=== PATIENT | female | born 1985 | race Caucasian/White ===

== ENCOUNTER → 2025-04-28 15:41 | Outpatient (REF) | payer OTHER, SELFPAY | LOC: RAD 15:41 | PROVIDERS: ATTENDING PHYSICIAN Obstetrics & Gynecology | DX: O02.1 Missed abortion (principal) | CPT/HCPCS: 76801; 76817 ==

== ENCOUNTER → 2025-06-13 15:36 | Outpatient (REF) | payer OTHER, SELFPAY | LOC: PNTC 15:36 | PROVIDERS: ATTENDING PHYSICIAN Obstetrics & Gynecology | DX: Z36.0 Encounter for antenatal screening for chromosomal anomalies (principal); Z36.82 Encounter for antenatal screening for nuchal translucency | CPT/HCPCS: 76801; 76813 ==

== ENCOUNTER → 2025-07-11 16:11 | Outpatient (REF) | payer OTHER, SELFPAY | LOC: PNTC 16:11 | PROVIDERS: ATTENDING PHYSICIAN Obstetrics & Gynecology | DX: O99.210 Obesity complicating pregnancy, unspecified trimester (principal); O09.529 Supervision of elderly multigravida, unspecified trimester; O35.5XX0 Maternal care for (suspected) damage to fetus by drugs, not applicable or unspecified; O10.019 Pre-existing essential hypertension complicating pregnancy, unspecified trimester | CPT/HCPCS: 76805 ==

== ENCOUNTER → 2025-08-08 15:56 | Outpatient (REF) | payer OTHER, SELFPAY | LOC: PNTC 15:56 | PROVIDERS: ATTENDING PHYSICIAN Obstetrics & Gynecology | DX: O09.529 Supervision of elderly multigravida, unspecified trimester (principal); O99.210 Obesity complicating pregnancy, unspecified trimester; O35.5XX0 Maternal care for (suspected) damage to fetus by drugs, not applicable or unspecified; O10.019 Pre-existing essential hypertension complicating pregnancy, unspecified trimester | CPT/HCPCS: 76811; 76817 ==

== ENCOUNTER → 2025-08-15 15:32 | Outpatient (REF) | payer OTHER, SELFPAY ==
--- NOTE | 2025-08-11 10:13 | PN.DIAED06 ---
Meal Plan - Gestational
- Breakfast
Gestational Diabetes Meal Plan Name: 1800 calories
Breakfast - Total Carbohydrate (grams): 30 (Carbs = starch, fruit, dairy, juice)
Breakfast - Starch Carbohydrate: 1 (1 carb=15g)
Breakfast - Fruit Carbohydrate: 0 (no fruit or juice before noon)
Breakfast - Milk Carbohydrate: 1
Breakfast - Nonstarchy Vegetables: Yes
Breakfast - Meat/Protein: 1 (protein=1gram or 7oz)
Breakfast - Fat: 2 (fat=5oz)
- Morning Snack
Morning Snack - Total Carbohydrate (grams): 30
Morning Snack - Starch Carbohydrate: 1
Morning Snack - Fruit Carbohydrate: 0 (no fruit or juice before noon)
Morning Snack - Milk Carbohydrate: 1
Morning Snack - Nonstarchy Vegetables: Yes
Morning Snack - Meat/Protein: 0.5
Morning Snack - Fat: 0
- Lunch
Lunch - Total Carbohydrate (grams): 45
Lunch - Starch Carbohydrate: 2
Lunch - Fruit Carbohydrate: 1
Lunch - Milk Carbohydrate: 0
Lunch - Nonstarchy Vegetables: Yes
Lunch - Meat/Protein: 2
Lunch - Fat: 1
- Afternoon Snack
Afternoon Snack - Total Carbohydrate (grams): 30
Afternoon Snack - Starch Carbohydrate: 1
Afternoon Snack - Fruit Carbohydrate: 1
Afternoon Snack - Milk Carbohydrate: 0
Afternoon Snack - Nonstarchy Vegetables: Yes
Afternoon Snack - Meat/Protein: 1
Afternoon Snack - Fat: 0
- Dinner
Dinner - Total Carbohydrate (grams): 45
Dinner - Starch Carbohydrate: 2
Dinner - Fruit Carbohydrate: 0
Dinner - Milk Carbohydrate: 1
Dinner - Nonstarchy Vegetables: Yes
Dinner - Meat/Protein: 2
Dinner - Fat: 2
- Evening Snack
Evening Snack - Total Carbohydrate (grams): 30
Evening Snack - Starch Carbohydrate: 1
Evening Snack - Fruit Carbohydrate: 0
Evening Snack - Milk Carbohydrate: 1
Evening Snack - Nonstarchy Vegetables: Yes
Evening Snack - Meat/Protein: 1
Evening Snack - Fat: 1
--- NOTE | 2025-08-15 15:38 | PN.DE ---
Diabetes Education
- -
08/15/2025 GESTATIONAL DIABETES CONSULTATION
Met with patient today for medical nutrition therapy. G1, P1, currently at 20 weeks of gestation, with an FREDY of 12/19/2025.
Prior to , she was informed she has prediabetes based on her fasting BS but A1c was 5.4%.
She cannot exercise due to placenta previa. Has hypertension, takes Labetolol 100 mg QD, Aspirin 81 mg QD. There is the possibility of a C section at 37 weeks depending on baby's size. Currently at 60th percentile.
Explained glucose metabolism in body and what occurs during to cause increase blood sugar. Discussed importance of keeping BS well controlled to avoid complications to the baby during and after (macrosomia, hypoglycemia). Discussed
macronutrients, provided with 1800 olive GDM meal plan explaining proper portions and food combinations of carbohydrates, proteins, and fat. She drinks [employer] decaf with caramel flavoring and a large banana muffine in the morning, then eats
at 9:30am and 11:30am. Discussed the importance of lower fat sweets, proteins, and dairy. Discussed eating breakfast at home (as per her meal plan), spreading out snacks and lunch. She also eats a lot of white pasta, discussed 1 portion is 1/3
cup cooked pasta; switching to whole grain/higher fiber carbohydrates will help decrease blood sugar spikes.
Discussed physical activity and importance in lowering glucose values. She has physical restrictions and cannot exercise.
Provided her with Contour Next glucometer, she has the ordered test strips and lancets. Reviewed proper testing technique, testing sites and testing pattern. She is aware to test FBS and 2 hr pp each meal. Expected results for FBS <95 mg/dl and 2 hr
pp <120 mg/dl. Noted for blood sugar of 109mg/dl 2 hr after lunch this afternoon.
Log sheet provided for her to record results, she will send a 4-day meal log with all her FBG and 2hr Post prandial glucose numbers to this office for review. In addition, she will send all her glucose readings [facility] every Thursday.
She was encouraged to reach out should she require insulin
== END ==
LOC: DES 15:32
PROVIDERS: ATTENDING PHYSICIAN Obstetrics & Gynecology
DX: O24.419 Gestational diabetes mellitus in pregnancy, unspecified control (principal)
CPT/HCPCS: 99078

== ENCOUNTER 2025-08-24 10:00 | Emergency (ER) | payer OTHER, SELFPAY ==
[2025-08-24] VITALS (7 sets, daily range): BP systolic 96–176; BP diastolic 59–91; BMI 40.5
--- NOTE | 2025-08-24 10:50 | ED.GENMED ---
History of Present Illness
General
Chief Complaint: Cardiac Symptoms
Source: patient
Exam Limitations: none
Time Seen by Provider: 08/24/25 10:19
Nursing documentation reviewed up to this point in time: agreed with
History of Present Illness
History of Present Illness:
Patient is a 40-year-old female approximate 23 weeks followed by [facility] presents to the ER for evaluation. Yesterday patient started with a sore throat. 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
through the preschool. She went to urgent care today was found to have low-grade temperature and her heart rate was in the 140s and she was sent to the ER. She also was found to have protein in her urine. She is currently being treated for
gestational diabetes(diet-controlled) and hypertension on labetalol and aspirin. In addition she does have placenta previa.
She denies any vaginal bleeding, abdominal cramping.
Past History
Past History
ED Past Medical History: HTN
ED Past Surgical History: None
Social History
Tobacco: Non-smoker
Alcohol: None
Drug: None
Living: with family
Phy Exam
General Physical Exam
General Presentation: no apparent distress
General age: appears stated age
General Skin: warm and dry
General Habitus: normal
General Mental: alert
General Hydration: appears well hydrated
Eye Exam
Eye Exam General: PERRL: bilateral and EOM intact: bilateral
Cardiovascular Exam
Cardiovascular Exam: tachycardia
Pulmonary Exam
Pulmonary Exam: lungs clear and no respiratory distress
Neurological Exam
Neurological Exam: alert and oriented x3
Course
Orders/Labs/Results
Orders:
Orders
08/24/25 10:08
Electrocardiogram (*1) Urgent
Reason for Study: Bradycardia / Tachycardia
EKG- Treatment ONCE
08/24/25 10:26
IV Insert/Care/Rem.- Treatment PRN
0.9% Sodium Chloride 1000 ml [Nss] 1,000 ml IV BOLUS
08/24/25 10:51
Acetaminophen [Tylenol] 650 mg PO NOW STA
08/24/25 11:07
Basic Metabolic Panel Urgent
Complete Blood Count/With Diff Urgent
Urinalysis Reflex To Culture Urgent
Date Specimen was Collected: 08/24/25
Time Specimen was Collected: 10:47
Urine Microscopic Reflex Cult Urgent
Urine Culture Urgent
VICKIE Source: U
Specimen Description:
Date Specimen was Collected: 08/24/25
Time Specimen was Collected: 10:47
08/24/25 12:29
0.9% Sodium Chloride 1000 ml [Nss] 1,000 ml IV BOLUS
08/24/25 13:00
Heart Tones ONCE
Abnormal Lab Results
08/24/25
11:07
Hct 36.1 L %
(37.0-47.0)
Abs Immat Gran (auto) 0.1 H 10^3/uL
(0-0.05)
Absolute Neuts (auto) 6.6 H 10^3/uL
(1.4-6.5)
Absolute Lymphs (auto) 0.1 L 10^3/uL
(1.2-3.4)
Absolute Monos (auto) 0.7 H 10^3/uL
(0.1-0.6)
Immature Gran % 0.7 H %
(0-0.5)
Neutrophils % 87.1 H %
(42.2-75.2)
Lymphocytes % 1.8 L %
(20.5-51.1)
Sodium 131 L mmol/L
(135-145)
Carbon Dioxide 19 L mmol/L
(22-30)
BUN 4 L mg/dl
(7-17)
Creatinine 0.5 L mg/dL
(0.6-1.0)
Urine Ketones 3+ A
(Negative)
Ur Occult Blood Reflex 3+ A
(Negative)
Urine Bacteria (Reflex) Moderate A
(Negative)
Urine Albumin (Reflex) 2+ A
(Neg - Trace)
08/24/25 11:07
08/24/25 11:07
Vital Signs
Initial and Last Documented VS:
Initial Vital Signs
Temp
100.7 F H
08/24/25 10:00
Last Documented Vital Signs
Temp Pulse Resp BP Pulse Ox
98.0 F 106 20 96/59 98
08/24/25 10:03 08/24/25 14:00 08/24/25 14:00 08/24/25 14:00 08/24/25 11:00
Farm Equipment Service Technician consulted with Physician
Farm Equipment Service Technician consulted with physician?: Yes
Name of Physician Consulted: Sadiq
MDM/Problems Addressed
Differential Diagnosis Includes:
Not limited to COVID tachycardia
MDM/Problems Addressed:
Patient is a 23-week female presenting for elevated heart rate and COVID. Sent by urgent care. She presents awake alert no acute distress she is being treated and followed by HEALTH AND SAFETY MANAGER for distention of diabetes and placenta previa and
hypertension. She presents with a low-grade temperature here has not taken any antipyretic and was given Tylenol. Denies any abdominal pain or vaginal bleeding. Patient received 1 L of fluids at this point and heart rate improved from 140s to
120s. Will give a second liter of fluids. Patient with no vomiting no abdominal pain no bleeding. Blood pressure has has improved on its own no protein in urine sodium very minimally low at 131 potassium clotted however normal renal function
normal white count.
Will plan to hydrated with second liter.
D/c case w/ Dr Babcock .
1400 patient's heart rate significantly improved along with improved blood pressure. She is well-appearing in no acute distress resting peripherally. No shortness of breath lungs are clear nontachypneic. Will DC with outpatient follow-up HEALTH AND SAFETY MANAGER
Chronic conditions affecting care:
Gestational diabetes hypertension in
*Pulse Oximetry
SaO2: 98
Oxygen Mode of Delivery: Room air
Patient hypoxic: no
*EKG
Interpreted by ED Provider?: Yes
Heart Rate: 136
Rate: tachycardiac
Ischemia: no ischemia
*Critical Care Note
Total Time (30-74mins, 75-104mins- exclusive of procedures): Not Applicable
ED Attending Note
-
Portions of this chart may have been created with voice recognition software.� Occasional wrong word or��sound alike� substitutions may have occurred due to the inherent limitations of voice recognition software.
Discharge Plan
Departure
Patient Disposition: Home (Routine Discharge)
Date of Disposition: 08/24/25
Time of Disposition: 14:04
Patient with high blood pressure during this ER visit?: Yes
Covid-19: Not Applicable
Discharge Problem:
COVID-19, tachcardia
Instructions: Tachycardia, COVID-19 in adults (DC), BLOOD PRESSURE
Prescriptions:
No Action
fluvoxamine 50 MG tablet
100 mg PO BID
omeprazole magnesium [Prilosec OTC] 20 MG tablet,delayed release (DR/EC)
20 mg PO DAILY
Vistaril
1 tab PO PRN PRN (Reason: anxiety)
amlodipine 5 MG tablet
5 mg PO DAILY Qty: 30 0RF
(DME) Contour Next Test Strips Strip
Qty: 100 5RF
Rx Instructions:
Pt Testing 4 times a day
(DME) lancets [Microlet Lancet] Misc
Qty: 100 5RF
Rx Instructions:
Pt testing 4 times a day
Referrals:
Petra Moses DO [Active, Gynecology]
Tristan,Nikky H., TORTILLA MAKER [Family Provider, Family Practice]
Activity Restrictions/Additional Instructions:
As discussed please continue to stay well-hydrated. You were given 2 L of fluid here in the ER. You may take Tylenol for fever or chills. Closely follow-up with your HEALTH AND SAFETY MANAGER in the next few days return for any worsening symptoms. Your blood
pressure is improved along your heart rate.
Interventions
Interventions:
*Risk Screen - Suicide Last Done: 08/24/25 10:03
*General Assessment Last Done: 08/24/25 12:01
*Neglect/Abuse Screening Last Done: 08/24/25 10:03
*ED- Fall Risk Assessment Last Done: 08/24/25 12:01
*ED COVID-19 Vaccine History Last Done: 08/24/25 12:01
ED- Pulmonary Assessment Last Done: 08/24/25 11:00
ED- Cardiac Assessment Last Done: 08/24/25 11:00
Discharge Date and Time
Print Language: ETHIOPIAN
[2025-08-24] MEDS: TYLENOL 650 MG PO (11:16)
[2025-08-24 11:17] LABS: Urine Character Clear (Clear)
[2025-08-24] MEDS: NSS 1000 IV ×2 (11:17→13:00)
[2025-08-24 11:19] LABS: Hematocrit 36.1 % (37.0-47.0); Hemoglobin 12.0 g/dL (12.0-16.0); Mean Corp Hgb Conc. 33.2 g/dL (33.0-37.0); Mean Corpuscular Volume 84.1 fL (81.0-99.0); Nucleated Red Blood Cells % 0 %; Platelet Count 219 10^3/uL (130-400); Red Cell Dist. Width 13.9 % (11.5-14.5)
[2025-08-24 11:30] LABS: Urine Squamous Cell >30 /LPF (Few)
[2025-08-24 11:31] LABS: Urine Red Blood Cell 0-2 /HPF (0-2)
[2025-08-24 11:35] LABS: Blood Urea Nitrogen 4 mg/dl (7-17); Calcium 8.8 mg/dl (8.4-10.2); Carbon Dioxide 19 mmol/L (22-30); Chloride 105 mmol/L (98-107); Estimated Creatinine Clearance > 125 ml/min; Glucose 89 mg/dl (70-99); Sodium 131 mmol/L (135-145); eGFR > 60.00
== END 2025-08-24 14:31 | disposition home or self-care (01) ==
LOC: EMR 10:00
PROVIDERS: Nurse Practitioner; EMERGENCY PHYSICIAN Emergency Medicine; FAMILY PHYSICIAN Nurse Practitioner Family
DX: O98.512 Other viral diseases complicating pregnancy, second trimester (principal); U07.1 COVID-19; O10.912 Unspecified pre-existing hypertension complicating pregnancy, second trimester; O24.410 Gestational diabetes mellitus in pregnancy, diet controlled; O44.02 Complete placenta previa NOS or without hemorrhage, second trimester; Z3A.23 23 weeks gestation of pregnancy
CPT/HCPCS: 96360; 96361; 99284; 80048; 81003; 81015; 85025; 87086; 93005

== ENCOUNTER → 2025-09-05 10:53 | Outpatient (REF) | payer OTHER, SELFPAY | LOC: PNTC 10:53 | PROVIDERS: ATTENDING PHYSICIAN Obstetrics & Gynecology | DX: O99.212 Obesity complicating pregnancy, second trimester (principal); O10.012 Pre-existing essential hypertension complicating pregnancy, second trimester; O44.02 Complete placenta previa NOS or without hemorrhage, second trimester; O99.322 Drug use complicating pregnancy, second trimester; O24.429 Gestational diabetes mellitus in childbirth, unspecified control | CPT/HCPCS: 76816 ==

== ENCOUNTER 2025-09-16 14:38 | Observation (INO) | payer OTHER, SELFPAY ==
[2025-09-16 14:44] VITALS: BP 141/83; BMI 39.7
[2025-09-16 16:08] LABS: Hematocrit 35.8 % (37.0-47.0); Hemoglobin 12.2 g/dL (12.0-16.0); Mean Corp Hgb Conc. 34.1 g/dL (33.0-37.0); Mean Corpuscular Volume 84.8 fL (81.0-99.0); Nucleated Red Blood Cells % 0 %; Platelet Count 282 10^3/uL (130-400); Red Cell Dist. Width 13.5 % (11.5-14.5)
[2025-09-16 16:29] LABS: ALT (SGPT) 42 U/L (0-35); AST (SGOT) 26 U/L (14-36); Albumin 3.6 g/dl (3.5-5.0); Alkaline Phosphatase 94 U/L (38-126); Blood Urea Nitrogen 4 mg/dl (7-17); Calcium 9.0 mg/dl (8.4-10.2); Carbon Dioxide 20 mmol/L (22-30); Chloride 108 mmol/L (98-107); Estimated Creatinine Clearance > 125 ml/min; Glucose 95 mg/dl (70-99); Potassium 4.1 mmol/L (3.5-5.1); Sodium 134 mmol/L (135-145); Total Protein 6.6 g/dl (6.3-8.2); eGFR > 60.00
[2025-09-16 16:32] LABS: INR 0.96; PT 13.1 Sec (11.4-14.6)
[2025-09-16 16:33] LABS: APTT 26.5 Sec (23.4-35.0); Fibrinogen 478 MG/DL (199-459)
[2025-09-16] MEDS: LR 1000 IV (20:10)
[2025-09-16 21:38] LABS: Glucose - Point of Care 126 mg/dl (70-99)
[2025-09-17 05:35] LABS: Glucose - Point of Care 109 mg/dl (70-99)
[2025-09-17 05:39] LABS: Hematocrit 34.9 % (37.0-47.0); Hemoglobin 11.6 g/dL (12.0-16.0); Mean Corp Hgb Conc. 33.2 g/dL (33.0-37.0); Mean Corpuscular Volume 86.6 fL (81.0-99.0); Platelet Count 252 10^3/uL (130-400); Red Cell Dist. Width 13.8 % (11.5-14.5)
[2025-09-17 06:15] LABS: ALT (SGPT) 37 U/L (0-35); AST (SGOT) 24 U/L (14-36); Albumin 3.0 g/dl (3.5-5.0); Alkaline Phosphatase 81 U/L (38-126); Blood Urea Nitrogen 4 mg/dl (7-17); Calcium 8.5 mg/dl (8.4-10.2); Carbon Dioxide 25 mmol/L (22-30); Chloride 108 mmol/L (98-107); Estimated Creatinine Clearance > 125 ml/min; Glucose 109 mg/dl (70-99); Potassium 4.4 mmol/L (3.5-5.1); Sodium 134 mmol/L (135-145); Total Protein 6.1 g/dl (6.3-8.2); eGFR > 60.00
[2025-09-17] MEDS: PRENATAL PLUS 1 TABLET PO (08:23)
== END 2025-09-17 09:17 | disposition home or self-care (01) ==
LOC: LDRP 14:38
PROVIDERS: ADMITTING PHYSICIAN Student in an Organized Health Care Education/Training Program
DX: O44.12 Complete placenta previa with hemorrhage, second trimester (principal); Z3A.26 26 weeks gestation of pregnancy; O24.410 Gestational diabetes mellitus in pregnancy, diet controlled; O10.912 Unspecified pre-existing hypertension complicating pregnancy, second trimester; O99.342 Other mental disorders complicating pregnancy, second trimester; F41.9 Anxiety disorder, unspecified; O99.212 Obesity complicating pregnancy, second trimester; Z82.49 Family history of ischemic heart disease and other diseases of the circulatory system; Z83.49 Family history of other endocrine, nutritional and metabolic diseases; Z80.3 Family history of malignant neoplasm of breast
CPT/HCPCS: 76801; 76817; 80053; 82570; 82962; 84156; 85025; 85027; 85384; 85460; 85610; 85730; 86850; 86900; 86901; G0378

== ENCOUNTER → 2025-09-20 14:17 | Outpatient (REF) | payer OTHER, SELFPAY ==
--- NOTE | 2025-09-20 14:45 | PN.DE ---
Diabetes Education
- -
09/20/2025 GESTATIONAL DIABETES EDUCATION - INSULIN INSTRUCTION
Met with Kriss, she states since our last conversation on 08/15/2025 her Am BS have been between 99-110 in the morning. Her MD prescribed 6 units Humulin N (NPH) at bedtime. I reviewed proper insulin storage and administration technique.
Provided her with Kiera Copay card for $35 a month, she paid $200 at [facility]. She will ask if they can rebill. She has the office phone # and will contact us with any additional questions.
== END ==
LOC: DES 14:17
PROVIDERS: ATTENDING PHYSICIAN Obstetrics & Gynecology Maternal & Fetal Medicine
DX: O24.419 Gestational diabetes mellitus in pregnancy, unspecified control (principal)
CPT/HCPCS: 99078

== ENCOUNTER 2025-10-04 02:21 | Observation (INO) | payer OTHER, SELFPAY ==
[2025-10-04 02:47] VITALS: BP 130/81; BMI 38.3
[2025-10-04 03:30] LABS: Urine Character Clear (Clear)
[2025-10-04 03:38] LABS: Urine Red Blood Cell 0-2 /HPF (0-2); Urine White Cell 0-2 /HPF (0-5)
[2025-10-04 04:27] LABS: Hematocrit 35.3 % (37.0-47.0); Hemoglobin 11.4 g/dL (12.0-16.0); Mean Corp Hgb Conc. 32.3 g/dL (33.0-37.0); Mean Corpuscular Volume 85.9 fL (81.0-99.0); Platelet Count 257 10^3/uL (130-400); Red Cell Dist. Width 13.5 % (11.5-14.5)
[2025-10-04 07:10] LABS: Glucose - Point of Care 88 mg/dl (70-99)
== END 2025-10-04 07:57 | disposition home or self-care (01) ==
LOC: LDRP 02:21
PROVIDERS: ADMITTING PHYSICIAN Obstetrics & Gynecology
DX: O44.13 Complete placenta previa with hemorrhage, third trimester (principal); O36.8130 Decreased fetal movements, third trimester, not applicable or unspecified; Z3A.29 29 weeks gestation of pregnancy; O24.414 Gestational diabetes mellitus in pregnancy, insulin controlled; O10.913 Unspecified pre-existing hypertension complicating pregnancy, third trimester; E78.00 Pure hypercholesterolemia, unspecified; O98.313 Other infections with a predominantly sexual mode of transmission complicating pregnancy, third trimester; A63.0 Anogenital (venereal) warts; O99.343 Other mental disorders complicating pregnancy, third trimester; F41.9 Anxiety disorder, unspecified; F42.9 Obsessive-compulsive disorder, unspecified; O99.213 Obesity complicating pregnancy, third trimester; O09.513 Supervision of elderly primigravida, third trimester; Z80.3 Family history of malignant neoplasm of breast; Z80.8 Family history of malignant neoplasm of other organs or systems; Z82.49 Family history of ischemic heart disease and other diseases of the circulatory system; Z79.82 Long term (current) use of aspirin
CPT/HCPCS: 76815; 81003; 81015; 82962; 85027; 85460; G0378

== ENCOUNTER → 2025-10-11 15:59 | Outpatient (REF) | payer OTHER, SELFPAY | LOC: PNTC 15:59 | PROVIDERS: ATTENDING PHYSICIAN Obstetrics & Gynecology | DX: O99.213 Obesity complicating pregnancy, third trimester (principal); O10.013 Pre-existing essential hypertension complicating pregnancy, third trimester; O24.414 Gestational diabetes mellitus in pregnancy, insulin controlled; O44.13 Complete placenta previa with hemorrhage, third trimester | CPT/HCPCS: 76816 ==

== ENCOUNTER 2025-10-17 23:07 | Inpatient (IN) | payer OTHER, SELFPAY ==
[2025-10-17 23:08] VITALS: BP 137/82; BMI 39.4
[2025-10-17 23:23] LABS: Glucose - Point of Care 179 mg/dl (70-99)
[2025-10-17] MEDS: CELESTONE SOLUSPAN 2 MG IM (23:35)
[2025-10-17 23:38] LABS: Hematocrit 34.9 % (37.0-47.0); Hemoglobin 11.9 g/dL (12.0-16.0); Mean Corp Hgb Conc. 34.1 g/dL (33.0-37.0); Mean Corpuscular Volume 82.1 fL (81.0-99.0); Nucleated Red Blood Cells % 0 %; Platelet Count 290 10^3/uL (130-400); Red Cell Dist. Width 13.2 % (11.5-14.5)
[2025-10-17 23:50] LABS: ALT (SGPT) 21 U/L (0-35); AST (SGOT) 20 U/L (14-36); Albumin 3.2 g/dl (3.5-5.0); Alkaline Phosphatase 106 U/L (38-126); Blood Urea Nitrogen 9 mg/dl (7-17); Calcium 8.7 mg/dl (8.4-10.2); Carbon Dioxide 23 mmol/L (22-30); Chloride 105 mmol/L (98-107); Estimated Creatinine Clearance > 125 ml/min; Glucose 168 mg/dl (70-99); Potassium 4.0 mmol/L (3.5-5.1); Sodium 134 mmol/L (135-145); Total Protein 6.2 g/dl (6.3-8.2); eGFR > 60.00
[2025-10-17 23:53] LABS: INR 0.94; PT 12.9 Sec (11.4-14.6)
--- NOTE | 2025-10-18 00:21 | CON.NEO ---
Consultation
-
Date/Time Consultation Requested: 10/17/2025 @2315
Date/Time Consultation Performed: 10/17/2023@2320
Requesting Provider: Matilde
Performing Provider: Jaci
Reason for Consultation: Bleeding placenta previa at 31 weeks
Consultation - Neonatology
Maternal Labs
Blood Type: A Positive
Antibody Screen: Negative
RPR: Nonreactive
Rubella: Immune
Hep B S Ag: Negative
Hep C: Negative
HIV: Nonreactive
Group B Strep: Unknown
Chlamydia/GC: Negative
Consult
Mother presented due to bright red vaginal bleeding with known history of complete previa. Has previously has small bleeding events.
Mother reports fetus has been growing well and is measuring large.
Mother's also complicated by AMA, GDMA1, chronic hypertension on labetalol, on zoloft.
Mother received betamethasone x 1.
Concern for possible delivery if bleeding continues. Mother would be too unstable to transfer to higher level care.
Parents aware that lower limit of 32 weeks for infant to stay at [facility]. If delivers prior to 32 weeks, would need transport to higher level NICU.
Points discussed at consult:
- Management at delivery including the possibility of CPAP/intubation/surfactant discussed
- Respiratory: RDS possibility with possibility of worsening for 24-48 hrs, management including CPAP/surfactant/ventilator support may be required
- Nutrition: Hypoglycemia, need for IV fluids, gradual feed advance, Gavage feeding, importance of colostrum feeding, initiation of expression of colostrum within 3-4 hours, availability of donor milk, safety fo donor milk etc. were discussed.
Mother plans on .
- Procedures: Intubation, CPAP, IV placement, blood tests, umbilical arterial or venous lines, gavage feedings were discussed
- [facility]: possibility of PDA not discussed in detail at this time
- GEOPHYSICAL SUPPORT SPECIALIST: Discussed neurodevelopmental outcomes
- Jaundice possibility and need for phototherapy discussed
- Family Centered Care: Discussed FCC with emphasis on parental participation during sign off and during management rounds and is encouraged. Availability of ghazal eyes camera also discussed
Mom and Dad were given the opportunity to ask questions throughout and open invitation to call if any questions come as they absorb all the information given so far.
Face to Face Time
Total [id number] Time (in Minutes): 30
--- NOTE | 2025-10-18 03:01 | DOWNTIME ---
There was a [employer] Client [facility] Clinician Downtime on 10/18/2025 from 0100 to 10/18/2025 at 0255. Downtime documentation of patient's care, including medication administrations, has been reconciled in the electronic record per guidelines. Refer to the
patient's paper chart under the miscellaneous tab to see printed paper medication records and downtime forms.
[2025-10-18 07:13] LABS: Glucose - Point of Care 139 mg/dl (70-99)
== END 2025-10-18 09:53 | disposition short-term general hospital (02) | DRG 832 ==
LOC: 2 NORTH 23:07
PROVIDERS: ADMITTING PHYSICIAN Obstetrics & Gynecology; CONSULT PHYSICIAN Pediatrics Neonatal-Perinatal Medicine
DX: O44.13 Complete placenta previa with hemorrhage, third trimester (principal); O10.913 Unspecified pre-existing hypertension complicating pregnancy, third trimester; O98.313 Other infections with a predominantly sexual mode of transmission complicating pregnancy, third trimester; Z3A.31 31 weeks gestation of pregnancy; O09.513 Supervision of elderly primigravida, third trimester; O24.414 Gestational diabetes mellitus in pregnancy, insulin controlled; A63.0 Anogenital (venereal) warts; E78.00 Pure hypercholesterolemia, unspecified; O99.343 Other mental disorders complicating pregnancy, third trimester; F41.9 Anxiety disorder, unspecified; F42.9 Obsessive-compulsive disorder, unspecified; O99.213 Obesity complicating pregnancy, third trimester; Z82.49 Family history of ischemic heart disease and other diseases of the circulatory system; Z80.3 Family history of malignant neoplasm of breast; Z80.8 Family history of malignant neoplasm of other organs or systems
CPT/HCPCS: 76805; 80053; 82962; 85025; 85460; 85610; 86850; 86900; 86901

== ENCOUNTER → 2025-10-24 16:07 | Outpatient (REF) | payer OTHER, SELFPAY | LOC: PNTC 16:07 | PROVIDERS: ATTENDING PHYSICIAN Obstetrics & Gynecology | DX: O99.213 Obesity complicating pregnancy, third trimester (principal); O10.013 Pre-existing essential hypertension complicating pregnancy, third trimester; O44.13 Complete placenta previa with hemorrhage, third trimester | CPT/HCPCS: 59025; 76815 ==

== ENCOUNTER 2025-10-31 07:24 | Inpatient (IN) | payer OTHER, SELFPAY ==
[2025-10-25 03:37] VITALS: BMI 39.5
[2025-10-25 03:46] VITALS: BP 125/92
[2025-10-25 04:39] LABS: Hematocrit 35.2 % (37.0-47.0); Hemoglobin 11.7 g/dL (12.0-16.0); Mean Corp Hgb Conc. 33.2 g/dL (33.0-37.0); Mean Corpuscular Volume 80.7 fL (81.0-99.0); Platelet Count 322 10^3/uL (130-400); Red Cell Dist. Width 13.4 % (11.5-14.5)
[2025-10-25 04:45] LABS: APTT 24.4 Sec (23.4-35.0); Fibrinogen 501 MG/DL (199-459); INR 0.92; PT 12.7 Sec (11.4-14.6)
[2025-10-25 04:52] LABS: Glucose - Point of Care 123 mg/dl (70-99)
[2025-10-25 08:03] LABS: Glucose - Point of Care 94 mg/dl (70-99)
[2025-10-25] MEDS: TRANDATE 200 MG PO ×2 (08:07→19:49)
[2025-10-25 11:53] LABS: Glucose - Point of Care 111 mg/dl (70-99)
[2025-10-25] MEDS: PEPCID 20 MG PO (14:06)
[2025-10-25] MEDS: ZOLOFT 150 MG PO (14:06)
[2025-10-25] MEDS: TUMS CHEWABLE TABLET 200 MG PO (14:06)
[2025-10-25 15:52] LABS: Glucose - Point of Care 132 mg/dl (70-99)
[2025-10-25] MEDS: ASPIR LOW (ENTERIC COATED) 81 MG PO (15:54)
[2025-10-25 20:00] LABS: Glucose - Point of Care 144 mg/dl (70-99)
[2025-10-25 22:08] LABS: Glucose - Point of Care 118 mg/dl (70-99)
[2025-10-25] MEDS: PRENATAL PLUS 1 TABLET PO (22:08)
[2025-10-25] MEDS: HUMULIN N KWIKPEN 20 UNITS SC (22:08)
[2025-10-26 06:08] LABS: Glucose - Point of Care 99 mg/dl (70-99)
[2025-10-26] MEDS: ASPIR LOW (ENTERIC COATED) 81 MG PO ×2 (07:49)
[2025-10-26] MEDS: TRANDATE PO (07:56)
[2025-10-26] MEDS: PEPCID 20 MG PO (11:34)
[2025-10-26] MEDS: TUMS CHEWABLE TABLET 200 MG PO (11:34)
[2025-10-26 12:19] LABS: Glucose - Point of Care 134 mg/dl (70-99)
[2025-10-26] MEDS: ZOLOFT 150 MG PO (13:33)
[2025-10-26 15:21] LABS: Glucose - Point of Care 108 mg/dl (70-99)
[2025-10-26] MEDS: TRANDATE 200 MG PO (20:36)
[2025-10-26 20:41] LABS: Glucose - Point of Care 163 mg/dl (70-99)
[2025-10-26] MEDS: PRENATAL PLUS 1 TABLET PO (22:03)
[2025-10-26] MEDS: HUMULIN N KWIKPEN 20 UNITS SC (22:06)
[2025-10-26 22:07] LABS: Glucose - Point of Care 139 mg/dl (70-99)
[2025-10-27 06:04] LABS: Glucose - Point of Care 110 mg/dl (70-99)
[2025-10-27] MEDS: ASPIR LOW (ENTERIC COATED) 81 MG PO (08:34)
[2025-10-27] MEDS: TRANDATE 200 MG PO ×2 (08:34→20:50)
--- NOTE | 2025-10-27 10:23 | PN.DE.MGMTRT ---
Insulin Management
- -
10/27/2025 Diabetes Management Consult
Patient is admitted with Gestational diabetes due to placenta previa and bleeding. PMH anxiety depression, HTN, fatty liver, HCL, GERD. Patient was seen as outpatient for Gestational diabetes education including 1800 calorie diet, home glucose
monitoring. Perinatology initiated NPH at 6 units on 09/20. Since then HS NPH has been increased to 20 units.
Fasting glucose today 110. Pre meal glucose range 134 to 163. Will change diet from 2000 calories to 1800 calories. Will increase HS NPH to 22 units and start novolog 2 units with breakfast and dinner and low corrective with all meals.
Discussed with nurse.
Will follow
Diabetes History
- -
Type of Diabetes: Gestational
Pre-Admission Diabetes Regimen
Insulin Pump Settings
IP Diabetes Regimen
10/26/25 10/26/25 10/26/25
12:16 15:17 20:40
POC Glucose 134 H 108 H 163 H
10/26/25 10/27/25
22:05 06:02
POC Glucose 139 H 110 H
Patient Education
[2025-10-27] MEDS: TUMS CHEWABLE TABLET 200 MG PO (12:00)
[2025-10-27 12:04] LABS: Glucose - Point of Care 140 mg/dl (70-99)
[2025-10-27] MEDS: NOVOLOG FLEXPEN-LOW RESISTANCE SC (12:05)
[2025-10-27] MEDS: PEPCID 20 MG PO (14:25)
[2025-10-27] MEDS: ZOLOFT 150 MG PO (14:25)
[2025-10-27 16:06] LABS: Glucose - Point of Care 108 mg/dl (70-99)
[2025-10-27] MEDS: NOVOLOG FLEXPEN 2 UNITS SC (17:37)
[2025-10-27 20:03] LABS: Glucose - Point of Care 160 mg/dl (70-99)
[2025-10-27] MEDS: HUMULIN N KWIKPEN 22 UNITS SC (21:58)
[2025-10-27 22:01] LABS: Glucose - Point of Care 100 mg/dl (70-99)
[2025-10-27] MEDS: PRENATAL PLUS 1 TABLET PO (22:07)
[2025-10-28] MEDS: ASPIR LOW (ENTERIC COATED) 81 MG PO (08:02)
[2025-10-28] MEDS: TRANDATE 200 MG PO ×2 (08:03→20:18)
[2025-10-28 09:11] LABS: Glucose - Point of Care 92 mg/dl (70-99)
[2025-10-28 09:20] LABS: Hematocrit 34.6 % (37.0-47.0); Hemoglobin 11.5 g/dL (12.0-16.0); Mean Corp Hgb Conc. 33.2 g/dL (33.0-37.0); Mean Corpuscular Volume 83.2 fL (81.0-99.0); Platelet Count 289 10^3/uL (130-400); Red Cell Dist. Width 13.5 % (11.5-14.5)
[2025-10-28] MEDS: NOVOLOG FLEXPEN 2 UNITS SC (09:30)
[2025-10-28] MEDS: NOVOLOG FLEXPEN-LOW RESISTANCE 2 UNITS SC (10:05)
[2025-10-28] MEDS: ZOLOFT 150 MG PO (12:31)
[2025-10-28 12:40] LABS: Glucose - Point of Care 155 mg/dl (70-99)
[2025-10-28] MEDS: NOVOLOG FLEXPEN-LOW RESISTANCE 1 UNITS SC (12:55)
[2025-10-28] MEDS: PEPCID 20 MG PO (13:00)
[2025-10-28 16:21] LABS: Glucose - Point of Care 87 mg/dl (70-99)
[2025-10-28] MEDS: NOVOLOG FLEXPEN-LOW RESISTANCE 3 UNITS SC (18:33)
[2025-10-28 21:12] LABS: Glucose - Point of Care 144 mg/dl (70-99)
[2025-10-28] MEDS: HUMULIN N KWIKPEN 22 UNITS SC (22:04)
[2025-10-28] MEDS: PRENATAL PLUS 1 TABLET PO (22:06)
[2025-10-29] MEDS: TRANDATE 200 MG PO ×2 (08:21→20:01)
[2025-10-29] MEDS: ASPIR LOW (ENTERIC COATED) 81 MG PO (08:22)
[2025-10-29 09:58] LABS: Glucose - Point of Care 77 mg/dl (70-99)
[2025-10-29] MEDS: NOVOLOG FLEXPEN-LOW RESISTANCE SC ×4 (09:58→18:49)
[2025-10-29] MEDS: NOVOLOG FLEXPEN 3 UNITS SC ×2 (10:00→18:48)
[2025-10-29 12:14] LABS: Glucose - Point of Care 109 mg/dl (70-99)
[2025-10-29] MEDS: PEPCID 20 MG PO (13:04)
[2025-10-29] MEDS: ZOLOFT 150 MG PO (13:04)
[2025-10-29 16:39] LABS: Glucose - Point of Care 106 mg/dl (70-99)
[2025-10-29 18:40] LABS: Glucose - Point of Care 131 mg/dl (70-99)
[2025-10-29] MEDS: NOVOLOG FLEXPEN-LOW RESISTANCE 300 UNITS SC (18:43)
[2025-10-29 21:06] LABS: Glucose - Point of Care 138 mg/dl (70-99)
[2025-10-29] MEDS: PRENATAL PLUS 1 TABLET PO (21:14)
[2025-10-29] MEDS: COLACE 100 MG PO (21:14)
[2025-10-29] MEDS: HUMULIN N KWIKPEN 22 UNITS SC (21:51)
--- NOTE | 2025-10-30 08:13 | PN.DE.MGMTRT ---
Insulin Management
- -
10/30/2025: Diabetes Management Follow up
Patient is admitted with Gestational diabetes due to placenta previa and bleeding. She is with [facility] 12/20/24.
PMH: Anxiety depression, HTN, fatty liver, HCL, GERD. Patient was seen as outpatient for Gestational diabetes education including 1800 calorie diet, home glucose monitoring. Perinatology initiated NPH at 6 units on 09/20. Since then HS NPH has been
increased to 20 units.
Patient awake, alert, oriented, sitting up in bed, offers no complaints, able to discuss diabetes care plan
She is asking if it's okay to add a bedtime snack @ HS like she was doing at home.
Pre meal glucose range yesterday was 77 to 131. HS glucose was 138, received 22 units NPH, Fasting glucose today 78.
Will make no changes to current regimen: HS NPH 22 units and NovoLog 3 units with breakfast and dinner and low corrective with all meals.
Discussed with nurse. Will cont to follow
Diabetes History
- -
Type of Diabetes: 2 requiring insulin
Pre-Admission Diabetes Regimen
Insulin Pump Settings
IP Diabetes Regimen
10/29/25 10/29/25 10/29/25
09:53 12:11 16:06
POC Glucose 77 109 H 106 H
10/29/25 10/29/25
18:36 21:05
POC Glucose 131 H 138 H
Patient Education
[2025-10-30] MEDS: ASPIR LOW (ENTERIC COATED) 81 MG PO (09:07)
[2025-10-30] MEDS: TRANDATE 200 MG PO ×2 (09:07→22:15)
[2025-10-30] MEDS: NOVOLOG FLEXPEN 3 UNITS SC ×2 (09:57→18:20)
[2025-10-30] MEDS: COLACE 100 MG PO ×2 (09:57→20:15)
[2025-10-30] MEDS: NOVOLOG FLEXPEN-LOW RESISTANCE SC ×3 (09:57→14:00)
[2025-10-30 10:05] LABS: Glucose - Point of Care 78 mg/dl (70-99)
[2025-10-30 12:14] LABS: Glucose - Point of Care 101 mg/dl (70-99)
[2025-10-30] MEDS: PEPCID 20 MG PO (13:02)
[2025-10-30] MEDS: ZOLOFT 150 MG PO (13:02)
[2025-10-30 14:04] LABS: Glucose - Point of Care 71 mg/dl (70-99)
[2025-10-30 16:12] LABS: Glucose - Point of Care 151 mg/dl (70-99)
[2025-10-30] MEDS: NOVOLOG FLEXPEN-LOW RESISTANCE 1 UNITS SC (16:15)
[2025-10-30 18:23] LABS: Glucose - Point of Care 104 mg/dl (70-99)
[2025-10-30] MEDS: TRANDATE PO (20:17)
[2025-10-30 20:50] LABS: Glucose - Point of Care 110 mg/dl (70-99)
[2025-10-30 22:11] LABS: Glucose - Point of Care 120 mg/dl (70-99)
[2025-10-30] MEDS: PRENATAL PLUS 1 TABLET PO (22:16)
[2025-10-30] MEDS: HUMULIN N KWIKPEN 22 UNITS SC (22:17)
[2025-10-31 01:54] LABS: Hematocrit 34.1 % (37.0-47.0); Hemoglobin 11.2 g/dL (12.0-16.0); Mean Corp Hgb Conc. 32.8 g/dL (33.0-37.0); Mean Corpuscular Volume 82.4 fL (81.0-99.0); Platelet Count 288 10^3/uL (130-400); Red Cell Dist. Width 13.8 % (11.5-14.5)
[2025-10-31 02:06] LABS: APTT 25.6 Sec (23.4-35.0); Fibrinogen 493 MG/DL (199-459); INR 1.03; PT 13.6 Sec (11.4-14.6)
[2025-10-31] MEDS: BICITRA 30 ML PO (02:09)
[2025-10-31] MEDS: TYLENOL 975 MG PO (02:09)
[2025-10-31] MEDS: ANCEF 10 IV (02:09)
[2025-10-31 03:05] LABS: Cord ABG Comment CORD BLOOD
[2025-10-31 03:14] LABS: B.E. Cord ABG -1.0 mMOL/L; HCO3 Cord ABG 27.3 mmol/L; O2 Saturation % Cord ABG 17.5 %; PCO2 Cord ABG 58 mmHg; PO2 Cord ABG 11 mmHg; pH Cord ABG 7.28
[2025-10-31 03:18] LABS: B.E. Cord ABG -1.2 mMOL/L; HCO3 Cord ABG 25.8 mmol/L; O2 Saturation % Cord ABG 43.1 %; PCO2 Cord ABG 50 mmHg; PO2 Cord ABG 21 mmHg; pH Cord ABG 7.32
[2025-10-31] MEDS: PITOCIN 30 UNITS/NSS 500 ML IV (04:50)
[2025-10-31] MEDS: TORADOL 15 MG IV ×3 (05:59→18:08)
--- NOTE | 2025-10-31 09:03 | PN.DE.MGMTRT ---
Insulin Management
- -
10/31/2025: Diabetes Management Follow up
Patient is admitted with Gestational diabetes due to placenta previa and bleeding. She is with [facility] 12/20/24.
PMH: Anxiety depression, HTN, fatty liver, HCL, GERD. Patient was seen as outpatient for Gestational diabetes education including 1800 calorie diet, home glucose monitoring. Perinatology initiated NPH at 6 units on 09/20. Since then HS NPH has been
increased to 20 units.
Early this AM patient had csection and baby delivered. Patient is awake, alert, oriented, sitting out of bed in chair, offers no complaints, able to discuss diabetes care plan
As is policy insulin has been stopped. After discussion with Dr Moses and resident will obtain pre meal glucose with low corrective insulin today and stop Accucheks if glucose in range.
Discussed with nurse. Will cont to follow
Diabetes History
- -
Type of Diabetes: Gestational
Pre-Admission Diabetes Regimen
Insulin Pump Settings
IP Diabetes Regimen
10/30/25 10/30/25 10/30/25
09:56 12:12 14:02
POC Glucose 78 101 H 71
10/30/25 10/30/25 10/30/25
16:10 18:18 20:46
POC Glucose 151 H 104 H 110 H
10/30/25
22:10
POC Glucose 120 H
Patient Education
[2025-10-31] MEDS: COLACE 100 MG PO ×2 (09:34→20:06)
[2025-10-31] MEDS: ROXICODONE 5 MG PO (09:34)
[2025-10-31] MEDS: TRANDATE 200 MG PO ×2 (09:36→20:07)
[2025-10-31] MEDS: LR 1000 IV (10:21)
[2025-10-31] MEDS: LR 500 IV ×2 (11:15→12:17)
[2025-10-31 12:22] LABS: Hematocrit 30.5 % (37.0-47.0); Hemoglobin 10.2 g/dL (12.0-16.0); Mean Corp Hgb Conc. 33.4 g/dL (33.0-37.0); Mean Corpuscular Volume 83.6 fL (81.0-99.0); Nucleated Red Blood Cells % 0 %; Platelet Count 276 10^3/uL (130-400); Red Cell Dist. Width 13.7 % (11.5-14.5)
[2025-10-31 12:38] LABS: Blood Urea Nitrogen 9 mg/dl (7-17); Calcium 8.7 mg/dl (8.4-10.2); Carbon Dioxide 25 mmol/L (22-30); Chloride 100 mmol/L (98-107); Estimated Creatinine Clearance > 125 ml/min; Glucose 152 mg/dl (70-99); Potassium 4.5 mmol/L (3.5-5.1); Sodium 129 mmol/L (135-145); eGFR > 60.00
[2025-10-31 14:20] LABS: Glucose - Point of Care 140 mg/dl (70-99)
[2025-10-31] MEDS: PEPCID 20 MG PO (14:39)
[2025-10-31] MEDS: ZOLOFT 150 MG PO (14:40)
[2025-10-31 16:16] LABS: Iron 104 ug/dl (37-170)
[2025-10-31 16:26] LABS: Total Iron Binding Capacity 595 ug/dl (265-497)
[2025-10-31] MEDS: FERRLECIT 110 MG IV (16:31)
[2025-10-31 17:02] LABS: Ferritin 12.8 ng/ml (6.24-137)
[2025-10-31 19:20] LABS: Glucose - Point of Care 93 mg/dl (70-99)
[2025-10-31] MEDS: PRENATAL PLUS 1 TABLET PO (22:07)
[2025-10-31 22:51] LABS: Glucose - Point of Care 138 mg/dl (70-99)
[2025-10-31 22:51] LABS: Glucose - Point of Care 132 mg/dl (70-99)
[2025-10-31] MEDS: BENADRYL 25 MG PO (23:59)
[2025-11-01] MEDS: TORADOL 15 MG IV
[2025-11-01] MEDS: ROXICODONE 5 MG PO ×2 (05:22)
[2025-11-01 05:31] LABS: Hematocrit 27.1 % (37.0-47.0); Hemoglobin 9.0 g/dL (12.0-16.0); Mean Corp Hgb Conc. 33.2 g/dL (33.0-37.0); Mean Corpuscular Volume 85.0 fL (81.0-99.0); Platelet Count 257 10^3/uL (130-400); Red Cell Dist. Width 14.1 % (11.5-14.5)
[2025-11-01] MEDS: MOTRIN 600 MG PO ×3 (05:59→23:34)
[2025-11-01] MEDS: TRANDATE 200 MG PO ×2 (08:48→20:12)
[2025-11-01] MEDS: COLACE 100 MG PO (08:55)
[2025-11-01 08:58] LABS: Glucose - Point of Care 79 mg/dl (70-99)
--- NOTE | 2025-11-01 12:50 | PN.DE.MGMTRT ---
Insulin Management
- -
11/01/2025: Diabetes Management Follow up
Patient is admitted with Gestational diabetes due to placenta previa and bleeding. She is with ED[facility] 12/20/24.
PMH: Anxiety depression, HTN, fatty liver, HCL, GERD. Patient was seen as outpatient for Gestational diabetes education including 1800 calorie diet, home glucose monitoring. Perinatology initiated NPH at 6 units on 09/20. Since then HS NPH has been
increased to 20 units.
Patient is awake alert and oriented able to discuss diabetes care.
10/31 Early AM patient had csection and baby delivered. As is policy insulin has been stopped. After discussion with Dr Moses and resident will obtain pre meal glucose. Glucose range 154 to 138.
11/01 Fasting glucose 79. Will stop AC accucheks.
Discussed with nurse. Will sign off.
Diabetes History
- -
Type of Diabetes: Gestational
Pre-Admission Diabetes Regimen
Insulin Pump Settings
IP Diabetes Regimen
10/31/25 10/31/25 10/31/25
14:17 19:19 22:49
POC Glucose 140 H 93 132 H
10/31/25 11/01/25
22:50 08:56
POC Glucose 138 H 79
Patient Education
[2025-11-01] MEDS: PEPCID 20 MG PO (13:14)
[2025-11-01] MEDS: ZOLOFT 150 MG PO (13:14)
[2025-11-01] MEDS: TYLENOL 650 MG PO ×2 (15:58→23:34)
--- NOTE | 2025-11-01 17:38 | W.PN.ANS.POP ---
Anesthesia Post Operative
- Anesthesia Post Op Note
Vital Signs Stable-See Nursing Note: Yes
Airway Patent: Yes
Adequate Pain Control: Yes
Change in Mental Status: No
Current Postoperative Nausea & Vomiting: No
Anesthesia Complications: No
General Anesthetic Recall: No
Unplanned Admission: No
Post Op Hydration Adequate: Yes
[2025-11-01] MEDS: COLACE PO (21:24)
[2025-11-01] MEDS: PRENATAL PLUS 1 TABLET PO (21:34)
[2025-11-02] MEDS: COLACE PO ×3 (08:22→21:28)
[2025-11-02] MEDS: TRANDATE 200 MG PO ×2 (08:22→21:10)
[2025-11-02] MEDS: MOTRIN 600 MG PO ×3 (08:23→21:28)
[2025-11-02] MEDS: TYLENOL 650 MG PO ×3 (08:23→21:29)
[2025-11-02] MEDS: ZOLOFT 150 MG PO (13:19)
[2025-11-02] MEDS: PEPCID 20 MG PO (13:20)
[2025-11-02] MEDS: PRENATAL PLUS 1 TABLET PO (21:10)
[2025-11-02 23:40] LABS: Transferrin 442 mg/dL (200-360)
[2025-11-03] MEDS: TYLENOL 650 MG PO ×2 (04:24→13:15)
[2025-11-03] MEDS: MOTRIN 600 MG PO ×2 (04:25→13:15)
[2025-11-03] MEDS: FEOSOL 325 MG PO (08:05)
[2025-11-03] MEDS: COLACE 100 MG PO (08:05)
[2025-11-03] MEDS: TRANDATE 200 MG PO (08:05)
--- NOTE | 2025-11-03 10:47 | W.DS.TRANS ---
DC Summary - Machine Compositor
-
Discharge Instructions:
Discharge Diagnosis/Procedures section
Instructions:
Stand-Alone Forms: LDRP Delivery
Changes to Home Medications: No
Discharge Medications:
DC Medications w/original date entered in [employer]
famotidine 20 mg tablet (Pepcid) 20 mg PO DAILY Gastrointestinal Issue 09/16/25
labetalol 100 mg tablet 100 mg PO BID Blood Pressure 09/16/25
prenat.vits,olive,cyn-mhgv-yjjuw 1 tab PO QHS Supplement 09/16/25
sertraline 100 mg tablet (Zoloft) 150 mg PO DAILY Mental Health/Anxiety 09/16/25
acetaminophen 325 mg tablet 650 mg (2 x 325 mg) PO Q4HPRN PRN mild pain #0 tabs 11/03/25
docusate sodium 100 mg capsule 100 mg PO BID #0 caps 11/03/25
ferrous sulfate 325 mg (65 mg iron) tablet (FeroSul) 325 mg PO DAILY #0 tabs 11/03/25
ibuprofen 600 mg tablet 600 mg PO Q6HPRN PRN cramps #30 tabs 11/03/25
sennosides 8.6 mg tablet (Myra-hilaria) 17.2 mg (2 x 8.6 mg) PO HSPRN PRN constipation #0 tabs 11/03/25
simethicone 80 mg chewable tablet 80 mg PO TIDPRN PRN flatulence #0 tabs 11/03/25
Home Medication Changes
Pending Results: No
Total time spent discharging patient (in min): 20
[2025-11-03] MEDS: ZOLOFT 150 MG PO (13:08)
[2025-11-03] MEDS: PEPCID 20 MG PO (13:08)
[2025-11-03 13:43] LABS: Syphilis/T. pallidum Ab Reflex Negative (Negative)
== END 2025-11-03 14:50 | disposition home or self-care (01) | DRG 787 ==
LOC: LDRP 07:24
PROVIDERS: Obstetrics & Gynecology; Student in an Organized Health Care Education/Training Program; ADMITTING PHYSICIAN Obstetrics & Gynecology
PROC: 6A550ZT Pheresis of Cord Blood Stem Cells, Single (ICD-10-PCS; 2025-10-31)
PROC: 10D00Z1 Extraction of Products of Conception, Low, Open Approach (ICD-10-PCS; 2025-10-31)
DX: O44.13 Complete placenta previa with hemorrhage, third trimester (principal); O10.92 Unspecified pre-existing hypertension complicating childbirth; O98.32 Other infections with a predominantly sexual mode of transmission complicating childbirth; O72.1 Other immediate postpartum hemorrhage; Z3A.33 33 weeks gestation of pregnancy; Z37.0 Single live birth; O24.424 Gestational diabetes mellitus in childbirth, insulin controlled; O44.53 Low lying placenta with hemorrhage, third trimester; A63.0 Anogenital (venereal) warts; O99.214 Obesity complicating childbirth; O99.344 Other mental disorders complicating childbirth; F41.9 Anxiety disorder, unspecified; O99.824 Streptococcus B carrier state complicating childbirth; E78.00 Pure hypercholesterolemia, unspecified; F42.9 Obsessive-compulsive disorder, unspecified; K76.0 Fatty (change of) liver, not elsewhere classified; K21.9 Gastro-esophageal reflux disease without esophagitis; O99.284 Endocrine, nutritional and metabolic diseases complicating childbirth; F32.A Depression, unspecified; Z79.4 Long term (current) use of insulin; Z82.49 Family history of ischemic heart disease and other diseases of the circulatory system; Z80.3 Family history of malignant neoplasm of breast; Z80.8 Family history of malignant neoplasm of other organs or systems
CPT/HCPCS: 80048; 82728; 82803; 82962; 83540; 83550; 84466; 85025; 85027; 85384; 85610; 85730; 86780; 86850; 86900; 86901; 88307; J2916